=== PATIENT | male | born 1960 | race Caucasian/White ===

== ENCOUNTER 2017-12-06 05:43 | Emergency (ER) | payer OTHER ==
[~2017-12-06] VITALS: Ht 193 cm; Wt 133.8 kg
[2017-12-06] MEDS ORDERED: CHLORTHALIDONE25 MG (05:51)
[2017-12-06] MEDS ORDERED: DIOVAN320 MG (05:52)
[2017-12-06] MEDS ORDERED: NORVASC5 MG (05:52)
[2017-12-06] MEDS ORDERED: COREG25 MG (05:52)
[2017-12-06] MEDS ORDERED: COUMADIN 10MG T10 M1 (05:53)
[2017-12-06 06:17] LABS: ABSOLUTE BASOPHILS 0.1 thou/uL (0.0-0.2); ABSOLUTE EOSINOPHILS 0.2 thou/uL (0.0-0.7); ABSOLUTE LYMPHOCYTES 1.4 thou/uL (0.8-5.3); ABSOLUTE MONOCYTES 0.6 thou/uL (0.0-1.2); ABSOLUTE NEUTROPHILS 5.5 thou/uL (1.6-8.1); BASOPHILS 0.8 %; EOSINOPHILS 2.4 %; HEMATOCRIT 44.3 % (42.0-52.0); LYMPHOCYTES 18.2 %; MCH 29.6 pg (26.0-34.0); MCHC 33.7 g/dL (28.0-37.0); MCV 87.7 fL (80.0-100.0); MONOCYTES 7.3 %; MPV 7.7 fl. (7.2-11.1); NUCLEATED RBCS 0 /100WBC; PLATELET COUNT* 194 thou/uL (150-400); POLYS 71.3 %; RBC 5.06 mil/uL (4.50-6.00); RDW-CV 14.5 % (10.5-14.5); WBC 7.7 thou/uL (4.0-11.0)
[2017-12-06 06:26] LABS: ANION GAP 4 mmol/L (7-16); BUN 19 mg/dL (7-18); CALCIUM 8.5 mg/dL (8.5-10.1); CHLORIDE 103 mmol/L (98-107); CO2 33 mmol/L (21-32); CREATININE 1.1 mg/dL (0.6-1.3); GLUCOSE 119 mg/dL (70-99); POTASSIUM 3.5 mmol/L (3.5-5.1); SODIUM 140 mmol/L (136-145)
[2017-12-06 06:27] LABS: INR 1.6; PROTIME 15.1 Seconds (9.20-11.50)
[2017-12-06 06:33] LABS: ALBUMIN 3.5 g/dL (3.4-5.0); ALKALINE PHOSPHATASE 118 U/L (46-116); SGOT 21 U/L (15-37); SGPT 25 U/L (30-65); TOTAL BILIRUBIN 0.6 mg/dL (<0.1-1.0); TOTAL PROTEIN 6.9 g/dL (6.4-8.2); TROPONIN-I LEVEL <0.06 ng/mL (<0.06)
[2017-12-06 08:06] VITALS: BP 131/85
--- NOTE | 2017-12-06 12:29 | EKG ---
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 12/06/17 1229 0550 0550 Kris Guthrie MD, [facility] /EPI
== END 2017-12-06 08:08 | disposition home or self-care (01) ==
LOC: M.ERS 05:43
PROVIDERS: Emergency Medicine
DX: R07.89 Other chest pain (principal); I10 Essential (primary) hypertension